=== PATIENT | male | born 1985 | race Caucasian/White ===

== ENCOUNTER 2017-09-09 15:15 | Inpatient (IN) | payer OTHER ==
[~2017-09-09] VITALS: Ht 182.8 cm; Wt 87.7 kg
[2017-09-09 16:35] VITALS: BP 131/73
[2017-09-09] MEDS ORDERED: LEXAPRO10 MG PO (16:51)
[2017-09-09] MEDS ORDERED: BUSPIRONE10 MG PO (16:51)
[2017-09-09 18:00] LABS: BASO # 0.1 10*3/uL (0.0-0.1); BASO % 0.7 % (0.0-1.0); EOS # 0.4 10*3/uL (0.0-0.4); EOS % 3.8 % (1.0-4.0); HEMATOCRIT 46.9 % (42.0-52.0); HEMOGLOBIN 15.3 g/dl (14.0-18.0); LYMPH % 19.8 % (27.0-41.0); MEAN CELL VOLUME 96.1 fl (80.0-94.0); MEAN CORPUSCULAR HGB 31.4 pg (27.0-31.0); MEAN CORPUSCULAR HGB CONC 32.6 g/dl (33.0-37.0); MEAN PLATELET VOLUME 8.8 fl (9.6-12.3); MONO # 0.8 10*3/uL (0.1-1.0); NEUT # 6.8 10*3/uL (2.3-7.9); NEUT % 67.3 % (47.0-73.0); PLATELET COUNT AUTOMATED 270 10*3/uL (130-400); RED BLOOD COUNT 4.88 10*6/uL (4.50-5.90); RED CELL DISTRI WIDTH 12.2 % (0-14.5); WHITE BLOOD COUNT 10.1 10*3/uL (4.8-10.8)
[2017-09-09 18:07] LABS: INTERNATIONAL NORM RATIO 0.9 (2.0-3.5)
[2017-09-09 18:16] LABS: ALBUMIN 4.1 gm/dl (3.1-4.5); ALKALINE PHOSPHATASE 109 U/L (45-117); BUN 14 mg/dl (7-24); CHLORIDE 103 mmol/L (98-107); CREATININE 0.87 mg/dL (0.70-1.30); POTASSIUM 4.1 mmol/L (3.5-5.1); SGOT/AST 52 IU/L (3-35); SGPT/ALT 89 U/L (12-78); SODIUM 140 mmol/L (136-145); TOTAL PROTEIN 8.1 gm/dL (6.4-8.2)
[2017-09-09 18:22] LABS: ETHYL ALCOHOL < 3.0 mg/dl (<3)
[2017-09-09 18:30] LABS: BILIRUBIN NEGATIVE (NEGATIVE); BLOOD NEGATIVE (NEGATIVE); CLARITY CLEAR (CLEAR); COLOR YELLOW (YELLOW); GLUCOSE NEGATIVE (NEGATIVE); KETONE NEGATIVE (NEGATIVE); LEUKO ESTERASE NEGATIVE (NEGATIVE); NITRITE NEGATIVE (NEGATIVE); SPECIFIC GRAVITY 1.015 (1.005-1.030); UROBILINOGEN 0.2 E.U./dl (0.2-1.0)
[2017-09-09 18:39] LABS: URINE AMPHETAMINES < 1000 (1000ng/ml); URINE BARBITURATES > 200 (200ng/ml); URINE BENZODIAZEPINES < 200 (200ng/ml); URINE CANNABINOIDS (THC) < 50 (50ng/ml); URINE COCAINE > 300 (300ng/ml); URINE METHADONE < 300 (300ng/ml); URINE OPIATES > 300 (300ng/ml)
[2017-09-09 18:40] LABS: RBC 0-2 rbc/hpf (0-2); WBC 0-2 wbc/hpf (0-5)
[2017-09-09 18:41] LABS: URINE PHENCYCLIDINE < 25 (25ng/ml)
[2017-09-09 20:00] VITALS: BP 111/45; BP 120/52
[2017-09-10] VITALS: BP 116/69
[2017-09-10 04:00] VITALS: BP 120/62
[2017-09-10 08:00] VITALS: BP 132/70
[2017-09-10 12:00] VITALS: BP 128/70
[2017-09-10 16:00] VITALS: BP 110/66
[2017-09-10 20:00] VITALS: BP 129/74
[2017-09-11] VITALS: BP 129/77
[2017-09-11 08:00] VITALS: BP 102/54
[2017-09-11 12:00] VITALS: BP 112/90
[2017-09-11 16:00] VITALS: BP 110/62
== END 2017-09-11 19:50 | disposition left against medical advice (07) | DRG 894 ==
LOC: 4E 15:15
PROVIDERS: Family Medicine
DX: F11.23 Opioid dependence with withdrawal (principal); D72.810 Lymphocytopenia; F17.210 Nicotine dependence, cigarettes, uncomplicated; F41.9 Anxiety disorder, unspecified; Z53.21 Procedure and treatment not carried out due to patient leaving prior to being seen by health care provider; F14.10 Cocaine abuse, uncomplicated; R74.0 Nonspecific elevation of levels of transaminase and lactic acid dehydrogenase [LDH]; Z71.6 Tobacco abuse counseling; Z82.3 Family history of stroke; Z82.49 Family history of ischemic heart disease and other diseases of the circulatory system